=== PATIENT | male | born 2000 | race Caucasian/White ===

== ENCOUNTER 2022-10-02 08:20 | Emergency (ER) | payer BC, OTHER ==
[~2022-10-02] VITALS: Ht 175.3 cm; Wt 63.5 kg
--- NOTE | 2022-10-02 08:38 | NUR ---
BIB mom from home with c/o nausea and vomiting blood, Patient is alert and oriented x4, pale in color, #20g established in right ac, blood collected and sent to lab. Patient has been seen by ER provider and informed of plan of care. IVF infusing as per order, will continue to monitor.
[2022-10-02] MEDS ORDERED: METOCLOPRAMIDE HCL 10 MG/2 ML VIAL ONE (08:42)
[2022-10-02] MEDS ORDERED: HYDROMORPHONE 1 MG/1 ML DISP.SYRIN ONE (08:43)
[2022-10-02] MEDS ORDERED: IV NORMAL SALINE 1000 ML BAG IV ONE (08:45)
[2022-10-02] MEDS ORDERED: HYDROMORPHONE 1 MG/1 ML DISP.SYRIN IV ONE (08:45)
[2022-10-02] MEDS ORDERED: METOCLOPRAMIDE HCL 10 MG/2 ML VIAL IV ONE (08:45)
[2022-10-02 08:48] LABS: HEMATOCRIT 44.3 % (36.7-47.1); MEAN CORPUSCULAR HEMOGLOBIN 30.9 uug (23.8-33.4); MEAN CORPUSCULAR VOLUME 89.4 fL (73.0-96.2); PLATELET COUNT (AUTO) 326 K/uL (152-348)
[2022-10-02 08:56] LABS: BILIRUBIN,DIRECT 0.2 mg/dL (0.0-0.2); BILIRUBIN,TOTAL 1.1 mg/dL (0.2-1.0); CREATININE 1.1 mg/dL (0.6-1.3); POTASSIUM 3.5 mmol/L (3.5-5.1); TOTAL PROTEIN, SERUM 7.3 g/dL (6.4-8.2)
--- NOTE | 2022-10-02 09:03 | NUR ---
Patient off unit to [place] via [place]
[2022-10-02] MEDS ORDERED: SWABABLE VALVE TRANSFER SET EA MC ONE (09:10)
[2022-10-02] MEDS ORDERED: IV NORMAL SALINE 250 ML IV ONE (09:10)
[2022-10-02] MEDS ORDERED: IOHEXOL 300MG/ML 100 ML INFUS..BTL ONE (09:10)
[2022-10-02] MEDS ORDERED: HYDR-3972 PO (10:17)
--- NOTE | 2022-10-02 10:18 | NUR ---
MD was at bedside talking with patient. Okay for discharge home with mom, hl removed remains stable.
[2022-10-02 10:19] VITALS: BP 128/74; O2SAT 100
== END 2022-10-02 10:20 | disposition home or self-care (01) ==
LOC: ER 08:20
DX: K92.0 Hematemesis (principal); R10.13 Epigastric pain; R07.89 Other chest pain; J45.909 Unspecified asthma, uncomplicated; Z88.1 Allergy status to other antibiotic agents
CPT/HCPCS: 99285; 74177; 96374; 71045; 96375; 80076; 80048; 83690; 85025; 36415; J2765; Q9967; J1170